=== PATIENT | female | born 1980 | race Caucasian/White ===

== ENCOUNTER → 2016-08-13 | Outpatient (REF) ==
[~2016-08-13] MED LIST: ALDACTONE50 MG; FLOXIN 10 ML10 ML OT; NORCO 325 MG-7.1 TAB PO; SYNTHROID0.1 MG/TAB
[2016-08-13 06:22] LABS: BASO % 0.1 % (0.0-2.0); EOS % 0.1 % (0-4.0); GRAN # 13.4 (1.4-6.5); GRAN % 84.8 % (42.2-75.2); HEMATOCRIT 32.7 % (37.0-47.0); HEMOGLOBIN 10.8 g/dl (12.5-16.0); LYMPH # 1.3 (1.2-3.4); LYMPH % 8.2 % (20.0-51.0); MEAN CELL VOLUME 82 fl (80.0-100.0); MEAN CORPUSCULAR HEMOGLOBIN 27 pg (27.0-31.0); MEAN CORPUSCULAR HGB CONC 33 g/dl (33.0-37.0); MEAN PLATELET VOLUME 10.5 fl (7.4-10.4); MONO % 6.3 % (1.7-9.3); PLATELET COUNT 290 K/mm3 (130-400); RED BLOOD COUNT 3.98 M/mm3 (4.10-5.30); REDCELL DISTRIBUTION WIDTH-CV 13.3 % (11.5-14.5); WHITE BLOOD COUNT 15.8 K/mm3 (4.8-10.8)
== END ==
LOC: ZMSC 06:18
PROVIDERS: Obstetrics & Gynecology
DX: Z02.89 Encounter for other administrative examinations (principal)